=== PATIENT | female | born 1990 | race Caucasian/White ===

== ENCOUNTER 2018-02-05 10:14 | Inpatient (IN) ==
[2018-02-05] MEDS ORDERED: Metoclopramide 10 MG/2 ML VIAL IVP ONE (10:57)
[2018-02-05] MEDS ORDERED: Famotidine 20 MG/2 ML VIAL IVP ONE (10:57)
[2018-02-05] MEDS ORDERED: Gentamicin 490 MG in 0.9 % Sodium Chloride 100 ML IVPB ONE (11:02)
[2018-02-05 11:18] LABS: Basophils % 0.2 %; Eosinophils # 0.2 K/mcL (0.0-0.6); Eosinophils % 1.3 %; Hematocrit 41.4 % (35.3-44.9); Hemoglobin 13.7 g/dL (11.5-15.4); Immature Granulocytes % 0.4 % (0-4); Lymphocytes # 2.7 K/mcL (0.6-4.6); Lymphocytes % 22.4 %; Mean Corpuscular HGB Conc 33.1 g/dL (31.6-35.5); Mean Corpuscular Hemoglobin 27.6 pg (28.0-33.3); Mean Corpuscular Volume 83.3 fL (83.0-100.0); Mean Platelet Volume 11.5 fL (9.4-12.4); Monocytes # 0.6 K/mcL (0.0-1.3); Monocytes % 4.7 %; Neutrophils # 8.6 K/mcL (1.6-8.9); Platelet Count 288 K/mcL (140-400); Red Blood Count 4.97 M/mcL (3.82-4.97); Red Cell Distribution Width 14.1 % (11.5-14.5)
--- NOTE | 2018-02-05 11:22 | Anesthesia Evaluation PreOp ---
Date of Encounter: 02/05/18 Time of Encounter: 11:20 - Past History Planned Operation: Cardiac History: HTN (on Labetalol) Pulmonary History: Asthma Other Medical History: Diabetes Type II (Gestational), GERD Anesthesia History: No Prior Anesthetic Complications : Yes (37 weeks ) Alcohol Use: none Drug use: none Medications and Allergies Labetalol [Trandate] 200 mg PO DAILY 03/02/15 [History] Pnv95/Ferrous Fumarate/FA [ Formula Tablet] 1 each PO DAILY 03/02/15 [History] Loratadine [Claritin] 1 tab PO DAILY 03/15/17 [History] Azithromycin [Zithromax] 1 gm PO ONCE #1 packet 05/21/17 [Rx] Doxycycline 100 mg PO BID 14 Days #28 capsule 05/21/17 [Rx] Aspirin [Lo-Dose Aspirin EC] 1 tab PO DAILY 02/05/18 [History] Insulin NPH Human Isophane [Novolin N] 27 units SQ QPM 02/05/18 [History] metFORMIN 1,000 mg PO BID 02/05/18 [History] Allergy/AdvReac Type Severity Reaction Status Date / Time Amoxicillin AdvReac Hives Verified 02/05/18 10:48 cephalexin [From Keflex] AdvReac Gastrointestinal Verified 02/05/18 10:48 Upset doxycycline AdvReac Heartburn Verified 02/05/18 10:48 Penicillins AdvReac Hives Verified 02/05/18 10:48 - Meds/Allergy Pre-op Review Medications Reviewed: Yes Allergies Reviewed: Yes (Labetalol today midnight) Anesthesia Results - Labs Laboratory Tests 05/21/17 07/21/17 07/22/17 04:50 15:12 14:19 Hgb Hct Plt Count Sodium 136 Potassium 3.8 BUN 8 Creatinine 0.53 L 11/29/17 14:00 Hgb 11.8 Hct 35.7 Plt Count 384 Sodium Potassium BUN Creatinine - Imaging EKG: report reviewed (SR) Additional studies: ECHO 2018 EF 60%, no pulm htn Anesthesia Exam O2 Sat Height 1.8 m Weight 137 kg Height: 5'11 Weight: 137 kg NPO (# of Hours): MN Pain Scale: 0 - HEENT Pupil (Motor): Pupils equal, EOMI Mallampati: II Teeth: Normal Oral Opening: Greater than 3 - WINDOWS VMWARE ENGINEER LOC: Oriented WINDOWS VMWARE ENGINEER Motor: Normal RUE, Normal LUE, Normal RLE, Normal LLE, Normal Face WINDOWS VMWARE ENGINEER Sensory: Normal: RUE, LUE, RLE, LLE, Face - Cardiac Rhythm: Regular Murmur: None JVD: No Carotid Bruit: No - Pulmonary Breath Sounds: bilateral Clear Respiratory Effort: Symmetrical Anesthesia Assess/Plan ASA Score: 3 (HTN Asthma DM Obese) Level of consciousness: Cooperative Anesthetic Plan: Spinal Autologous Blood: No Monitoring Plan: Standard Monitors Recovery Plan: PACU (Discussed SAB, possible GA, possible blood transfusion, agrees to proceed)
[2018-02-05 11:29] LABS: Amphetamine Screen,Urine Negative ng/mL (Cutoff=1000); Barbiturate Screen,Urine Negative ng/mL (Cutoff=200); Benzodiazepines Screen,Urine Negative ng/mL (Cutoff=200); Cannabinoid Screen,Urine Negative ng/mL (Cutoff = 50); Cocaine Screen,Urine Negative ng/mL (Cutoff= 300); Opiate Screen,Urine Negative ng/mL (Cutoff=300); Phencyclidine Screen,Urine Negative ng/mL (Cutoff=25)
[2018-02-05] MEDS: Ringers Solution, Lactated 1,000 ML IVC ONE ×2 (11:46→12:51)
[2018-02-05] MEDS ORDERED: 0.9 % Sodium Chloride 1,000 ML ONE (12:02)
[2018-02-05] MEDS ORDERED: *HR* Morphine Sulfate/PF 10 MG/10 ML AMPUL ONE (12:07)
[2018-02-05] MEDS ORDERED: *HR* FentaNYL (PF) 100 MCG/2 ML VIAL ONE (12:07)
[2018-02-05] MEDS ORDERED: Lidocaine -MPF 1% 5 ML AMPUL ONE (12:09)
--- NOTE | 2018-02-05 12:23 | History & Physical Report ---
Date of Encounter: 02/05/18 Time of Encounter: 12:22 24 Hour HP Update - Instructions Instructions: If the History and Physical is less than 30 days old and was completed prior to A.M. admission and or procedure and has NOT been updated on calendar day of procedure please complete this update prior to performing procedure. - Update Patient reports changes in Medical Condition: No Changes in examination, assessment, or condition: No Changes in Medication: No Preop tests/diagnostics Reviewed: Yes Surgery Remains Indicated: Yes Consent for Planned Operative Procedure(s) Verified: Yes - Pre-Operative Checklist Preoperative Checklist Indicated: Yes Prophylactic Antibiotic Ordered: Yes Home Medications Include Beta Ten: Yes Beta Ten Taken Today (Day of Surgery): Yes Beta Ten Taken Yesterday (Day Prior to Surgery): Yes Is VTE Prophylaxis Indicated?: Yes
[2018-02-05] MEDS ORDERED: Clindamycin 900 MG/50 ML 900 MG/50 ML IV.SOLN IVPB ONE (12:26)
[2018-02-05] MEDS ORDERED: Ringers Solution, Lactated 1,000 ML ONE ×2 (12:40→14:33)
[2018-02-05] MEDS ORDERED: *HR* Oxytocin 10 UNIT/ML VIAL IM ONE ×2 (14:33)
[2018-02-05] MEDS ORDERED: Lidocaine -MPF 2% 5 ML VIAL ONE (14:33)
[2018-02-05] MEDS ORDERED: Ketamine *HR* 500 MG/10 ML MDV ONE (14:33)
--- NOTE | 2018-02-05 14:48 | Anesthesia Procedures ---
Date of Encounter: 02/05/18 Time of Encounter: 13:32 Procedures: Anesthesia - Epidural/Spinal Patient ID/Chart reviewed: Yes Patient examined: Yes OB Eval: Gestational age: 37 weeks 2 days OB Eval: : 4 OB Eval: Hx Para: 2 OB Eval: Contractions: Non-stressed pattern Consent Obtained: Yes Supplemental Oxygen: None/Room Air Site Prep: Aseptic Technique, Sterile prep and drape, Povidone-Iodine 1% Patient position: upright Local Anesthetic: Lidocaine 1% Amount of Local Anesthetic used: 10 Interspace Used: L3-L4 Loss of Resistance ([place]IST[place]): No Blood: No CSF: Yes Paresthesia: No Spinal Needle Gauge: 22 (120mm pencil point) Spinal Dose: see anesthesia record Procedure: successful on 3rd attempt; 3rd attempt performed by Dr. Ray; patient tolerated procedure well, vss Vitals + FHT's: see anesthesia record
[2018-02-05] MEDS ORDERED: Ondansetron 4 MG/2 ML VIAL IVP PRN ×2 (14:50→16:55)
[2018-02-05] MEDS ORDERED: *HR* Promethazine 25 MG/ML VIAL IVP PRN (14:50)
[2018-02-05] MEDS ORDERED: Acetaminophen IV 1,000 MG/100 ML INFUS..BTL IVPB ONE (14:50)
[2018-02-05] MEDS ORDERED: Naloxone 0.4 MG/ML INJ IVP PRN ×2 (14:50→16:55)
--- NOTE | 2018-02-05 16:00 | Anesthesia Evaluation Post Op ---
Date of Encounter: 02/05/18 Time of Encounter: 15:59 - Vital Signs Vital Signs: 127/65, HR 72, RR 16, SpO2 99% - Lungs Lungs: Clear Ascult./Percussion - Airway Airway: Non-obstructed - Cardiovascular Regular Rate - Mental Status Mental Status: Alert & Oriented, Answers Appropriately - Pain Pain Scale: 0 Pain Scale used: Numeric (1 - 10) - Nausea Vomiting Nausea Vomiting: Responds to treatment with IV Meds - Hydration Hydration: NPO, Kimball catheter - Discharge PostOp Status: Transfer Patient to floor
--- NOTE | 2018-02-05 16:18 | OB/GYN Procedure Note ---
Section - Date of procedure: 02/05/18 Preop diagnosis: other (placenta previa) Post-op diagnosis: same Procedure: primary low transverse Surgeon: Shannon Dominguez Blood Loss: 500 Was there an assistant printer floor covering present: Yes Brush Hand: Krishna Carrasco Anesthesiologist: Silviano Zayas Shellfish Sorter: Guido Castro Anesthesia Type: Spinal section complications: none Disposition: L&D Recovery Room Specimens: Placenta (hold) - (s) Infant A Infant Delivery Date: 02/05/18 Delivery Time: 13:51 Presentation: vertex Gender: Male Viability: Viable Pounds: 6 Ounces: 9 Gram Weight: 2.985 kg at 1 minute: 9 at 5 minutes: 9 Shoulder Dystocia: not encountered Specimens collected: cord blood Placenta: partial extraction Cord: nuchal cord, 3 umbilical vessels - Narrative Narrative: Patient was taken to the operative suite and placed under spinal anesthetic. She was then prepped and draped in normal sterile fashion in the dorsal supine position. Timeout was then performed. Antibiotics were given at room time. SCDs are on and active. Pfannenstiel skin incision is then made and carried through to underlying layer of fascia with the Bovie. The fascia was then incised in the midline and incision extended laterally with the Clemons scissors. The fascia was tented up and dissected off the rectus muscles sharply. The rectus muscles were in the midline and the peritoneum was tented up and entered sharply with the Metzenbaum scissors. The peritoneal incision was then extended bluntly. The bladder blade was then inserted and the vesicouterine peritoneum was entered sharply. Bladder flap was created digitally. A low transverse uterine incision was then made. The vertex was brought to the incision and the was delivered using fundal pressure. There was a loose nuchal cord. Cord was clamped and cut. was handed to waiting nursery staff. Placenta delivered spontaneously complete and intact with a three-vessel cord. The uterus was cleared of all clots and debris using moist laparotomy sponge. The uterine incision was then closed using 0 Vicryl in a running locked fashion. A second layer of the same suture was used to obtain excellent hemostasis. The abdomen was then cleared of all clots and debris using copious irrigation. The fascial incision was then closed using 0 PDS in a running fashion. The subcutaneous area was reapproximated with 3-0 monocryl. The skin was closed using 4-0 Vicryl in a subcuticular fashion. Sterile Parvin dressing was then placed. Mother and taken to recovery in stable condition.
[2018-02-05] MEDS ORDERED: *HR* HYDROmorphone (PF) 1 MG/ML SYRINGE IVP PRN (16:55)
[2018-02-05] MEDS ORDERED: Oxytocin 20 units/ LR 1000 mL 20 UNIT/1,000 ML BAG IVC SCH ×2 (16:55)
[2018-02-05] MEDS ORDERED: *HR* OxyCODONE Immed Rel 5 MG TABLET PO PRN (16:55)
[2018-02-05] MEDS ORDERED: Metoclopramide 10 MG/2 ML VIAL IVP PRN (16:55)
[2018-02-05] MEDS ORDERED: Acetaminophen 325 MG TABLET PO PRN (16:55)
[2018-02-05] MEDS ORDERED: Sennosides 8.6 MG TABLET PO PRN (16:55)
[2018-02-05] MEDS ORDERED: Simethicone 80 MG TAB.CHEW PO PRN (16:55)
[2018-02-05] MEDS: *HR* OxyCODONE/APAP 5/325 TABLET PO PRN (17:44)
[2018-02-05] MEDS: Ibuprofen 600 MG TABLET PO PRN (20:20)
[2018-02-06] MEDS: *HR* OxyCODONE/APAP 5/325 TABLET PO PRN ×5 (00:28→20:38)
[2018-02-06] MEDS: Ibuprofen 600 MG TABLET PO PRN ×2 (04:52→11:54)
[2018-02-06 06:59] LABS: Basophils % 0.3 %; Eosinophils # 0.2 K/mcL (0.0-0.6); Eosinophils % 1.9 %; Hematocrit 36.2 % (35.3-44.9); Immature Granulocytes % 0.3 % (0-4); Lymphocytes # 2.6 K/mcL (0.6-4.6); Lymphocytes % 22.9 %; Mean Corpuscular HGB Conc 32.9 g/dL (31.6-35.5); Mean Corpuscular Hemoglobin 27.9 pg (28.0-33.3); Mean Platelet Volume 11.2 fL (9.4-12.4); Monocytes # 0.5 K/mcL (0.0-1.3); Monocytes % 4.2 %; Neutrophils # 7.9 K/mcL (1.6-8.9); Platelet Count 242 K/mcL (140-400); Red Blood Count 4.26 M/mcL (3.82-4.97); Red Cell Distribution Width 14.1 % (11.5-14.5); Segmented Neutrophils % 70.4 %
[2018-02-06 07:04] LABS: Hemoglobin 11.9 g/dL (11.5-15.4)
[2018-02-06] MEDS ORDERED: Lanolin 7 G OINT...G. TP PRN (08:40)
[2018-02-06] MEDS: Prenatal Vit/FA 1 EACH TABLET PO SCH (09:05)
--- NOTE | 2018-02-06 11:48 | OB/GYN Progress Note ---
Date of Encounter: 02/06/18 Time of Encounter: 11:42 - Assessment and Plan (1) Status post delivery Current Visit: Yes Status: Acute Patient doing well day 1 postop. Meeting day 1 milestones. Voiding without difficulty, tolerating regular diet, pain well-controlled. Anticipate discharge tomorrow (2) Breast feeding status of mother Current Visit: Yes Status: Acute support as necessary. Patient has a breast pump at home. Subjective - Subjective Principal diagnosis: Status post delivery Interval history: Patient doing well day 1. Tolerating regular diet, voiding without difficulty, pain well-controlled. Bleeding light. Peak ressing intact and dry Patient reports: appetite normal, voiding normally, pain well controlled, ambulating normally [place]: doing well, nursing well Objective - Vital Signs Latest vital signs: Vital Signs Temp Pulse Resp BP Pulse Ox 02/06/18 07:45 97.8 F 85 16 104/70 02/06/18 04:00 97.6 F 86 16 112/72 96 02/06/18 00:00 97.7 F 92 16 109/76 95 02/05/18 20:00 97.9 F 83 16 142/91 94 02/05/18 19:02 98.1 F 90 16 145/100 02/05/18 18:00 98.6 F 75 16 135/97 02/05/18 17:30 97.6 F 64 16 142/91 98 02/05/18 17:00 97.6 F 69 14 134/83 97 Intake and Output 02/05/18 02/06/18 02/06/18 23:59 07:59 15:59 Intake Total 1080 / 1080 900 / 900 360 / 360 Output Total 1000 / 1000 1600 / 1600 1000 / 1000 Balance 80 / 80 -700 / -700 -640 / -640 Intake: Oral 1080 / 1080 900 / 900 360 / 360 Output: Urine 1000 / 1000 Catheter 1000 / 1000 1600 / 1600 Other: Meal Breakfast Percent of Meal Consumed 100% Stool Characteristics Normal for Patient Weight 137.2 kg 133.073 kg Blood Glucose* 106 Patient Weight 02/06/18 23:59 Weight 133.073 kg - Exam Lungs: bilateral: normal Chest: Normal S1, Normal S2 Extremities: Present: normal Abdomen: Present: normal appearance, soft Incision: Present: normal, dressed (KAY intact) Uterus: Present: normal, firm Fundal Height: 0 (u/1) - Labs Labs: Laboratory Results - last 24 hr 02/05/18 02/05/18 02/05/18 11:00 11:00 11:00 WBC RBC Hgb Hct MCV MCH MCHC RDW Plt Count MPV Immature Gran % Seg Neutrophils % Lymphocytes % Monocytes % Eosinophils % Basophils % Neutrophils # Lymphocytes # Monocytes # Eosinophils # Basophils # Glucose 97 POC Glucose Hep Bs Antigen Nonreactive Blood Type O POSITIVE Antibody Screen NEGATIVE Crossmatch See Detail 02/06/18 02/06/18 00:59 06:33 WBC 11.2 H RBC 4.26 Hgb 11.9 D Hct 36.2 MCV 85.0 MCH 27.9 L MCHC 32.9 RDW 14.1 Plt Count 242 MPV 11.2 Immature Gran % 0.3 Seg Neutrophils % 70.4 Lymphocytes % 22.9 Monocytes % 4.2 Eosinophils % 1.9 Basophils % 0.3 Neutrophils # 7.9 Lymphocytes # 2.6 Monocytes # 0.5 Eosinophils # 0.2 Basophils # 0.0 Glucose POC Glucose 106 H Hep Bs Antigen Blood Type Antibody Screen Crossmatch
[2018-02-07] MEDS: *HR* OxyCODONE/APAP 5/325 TABLET PO PRN ×2 (00:52→08:20)
[2018-02-07] MEDS: Ibuprofen 600 MG TABLET PO PRN (00:52)
[2018-02-07] MEDS: Prenatal Vit/FA 1 EACH TABLET PO SCH (08:20)
--- NOTE | 2018-02-07 08:50 | Discharge Summary ---
Date of Encounter: 02/07/18 Time of Encounter: 08:42 - Discharge Diagnosis (1) Status post delivery Priority: Primary Status: Acute Comments: Pt reports feeling well other than incisional pain this am. She desires disch arge home today. She is meeting all post-op milestones. (2) Chronic hypertension during Priority: Secondary Status: Acute Comments: BP's WNL on Labetalol 200mg BID. (3) Gestational diabetes Priority: Secondary Status: Acute Comments: Will obtain a 2 hour PP accucheck prior to discharge. Qualifiers: Gestational diabetes mellitus control: insulin-controlled Trimester: unspecified trimester Qualified Code(s): O24.414 - Gestational diabetes mellitus in , insulin controlled - Discharge Medications Prescriptions: Ibuprofen [Motrin] 600 mg PO Q6HR PRN #30 tablet PRN Reason: Cramping OxyCODONE Immed Rel [Roxicodone 5 MG] 5 mg PO Q6HR PRN 7 Days #28 tablet PRN Reason: Severe Pain (7-10) Docusate [Colace] 100 mg PO BID #60 capsule Labetalol [Trandate] 200 mg PO BID #120 tablet Home Medications: Pnv95/Ferrous Fumarate/FA [ Formula Tablet] 1 each PO DAILY 03/02/15 [History] Loratadine [Claritin] 1 tab PO DAILY 03/15/17 [History] Acetaminophen [Tylenol] 325 mg PO Q6HR PRN tablet 02/07/18 [Rx] Docusate [Colace] 100 mg PO BID #60 capsule 02/07/18 [Rx] Ibuprofen [Motrin] 600 mg PO Q6HR PRN #30 tablet 02/07/18 [Rx] Labetalol [Trandate] 200 mg PO BID #120 tablet 02/07/18 [Rx] Lanolin [Lansinoh] 1 appl TP TID PRN oint...g. 02/07/18 [Rx] OxyCODONE Immed Rel [Roxicodone 5 MG] 5 mg PO Q6HR PRN 7 Days #28 tablet 02/07/18 [Rx] Simethicone [Gas-X] 80 mg PO TID PRN tab.chew 02/07/18 [Rx] Allergies/Adverse Reactions: Allergy/AdvReac Type Severity Reaction Status Date / Time Amoxicillin AdvReac Hives Verified 02/05/18 10:48 cephalexin [From Keflex] AdvReac Gastrointestinal Verified 02/05/18 10:48 Upset doxycycline AdvReac Heartburn Verified 02/05/18 10:48 Penicillins AdvReac Hives Verified 02/05/18 10:48 Data Procedures and tests throughout hospitalization: Laboratory Tests 02/05/18 02/05/18 02/05/18 11:00 11:00 11:00 WBC 12.1 H RBC 4.97 Hgb 13.7 Hct 41.4 MCV 83.3 MCH 27.6 L MCHC 33.1 RDW 14.1 Plt Count 288 MPV 11.5 Immature Gran % 0.4 Seg Neutrophils % 71.0 Lymphocytes % 22.4 Monocytes % 4.7 Eosinophils % 1.3 Basophils % 0.2 Neutrophils # 8.6 Lymphocytes # 2.7 Monocytes # 0.6 Eosinophils # 0.2 Basophils # 0.0 Glucose POC Glucose Urine Opiates Screen Negative Ur Barbiturates Screen Negative Ur Phencyclidine Scrn Negative Ur Amphetamines Screen Negative U Benzodiazepines Scrn Negative Urine Cocaine Screen Negative U Marijuana (THC) Screen Negative Ur Drug Screen Interp See Below Hep Bs Antigen Blood Type O POSITIVE Antibody Screen NEGATIVE Crossmatch See Detail 02/05/18 02/05/18 02/06/18 11:00 11:00 00:59 WBC RBC Hgb Hct MCV MCH MCHC RDW Plt Count MPV Immature Gran % Seg Neutrophils % Lymphocytes % Monocytes % Eosinophils % Basophils % Neutrophils # Lymphocytes # Monocytes # Eosinophils # Basophils # Glucose 97 POC Glucose 106 H Urine Opiates Screen Ur Barbiturates Screen Ur Phencyclidine Scrn Ur Amphetamines Screen U Benzodiazepines Scrn Urine Cocaine Screen U Marijuana (THC) Screen Ur Drug Screen Interp Hep Bs Antigen Nonreactive Blood Type Antibody Screen Crossmatch 02/06/18 06:33 WBC 11.2 H RBC 4.26 Hgb 11.9 D Hct 36.2 MCV 85.0 MCH 27.9 L MCHC 32.9 RDW 14.1 Plt Count 242 MPV 11.2 Immature Gran % 0.3 Seg Neutrophils % 70.4 Lymphocytes % 22.9 Monocytes % 4.2 Eosinophils % 1.9 Basophils % 0.3 Neutrophils # 7.9 Lymphocytes # 2.6 Monocytes # 0.5 Eosinophils # 0.2 Basophils # 0.0 Glucose POC Glucose Urine Opiates Screen Ur Barbiturates Screen Ur Phencyclidine Scrn Ur Amphetamines Screen U Benzodiazepines Scrn Urine Cocaine Screen U Marijuana (THC) Screen Ur Drug Screen Interp Hep Bs Antigen Blood Type Antibody Screen Crossmatch Date of admission: 02/05/18 10:14 Primary care physician: Davina Tesfaye MD Discharging clinician: Nazia Ferguson Anticipated date of discharge: 02/07/18 - Patient Status Disposition: Home, Self-Care Condition: Good Functional capacity at discharge: independent ambulation Overall status at discharge: patient is progressing back to baseline - Discharge Instructions Follow Up With: Davina Tesfaye MD [Primary Care Provider] - Shannon Britton DO [Partnered Physician] - - Diet and Activity Activity: increase activity as tolerated Diet: regular diet Hospital Course Reason for admission: section (placenta previa) Delivery: section Episiotomy: none Laceration: none Other procedures: none Discharge diagnosis: IUP at term delivered baby: male Hospital course: - Date of procedure: 02/05/18 Preop diagnosis: other (placenta previa) Post-op diagnosis: same Procedure: primary low transverse Surgeon: Shannon Britton Quantitated Blood Loss: 500 Was there an glass ribbon machine operator assistant present: Yes Hydraulic Riveter: Krishna Carrasco Anesthesiologist: Silviano Zayas Assistant Program Manager: Guido Castro Anesthesia Type: Spinal section complications: none Disposition: L&D Recovery Room Specimens: Placenta (hold) - (s) Infant A Delivery Date: 02/05/18 Infant Delivery Time: 13:51 Presentation: vertex Gender: Male Viability: Viable Pounds: 6 Ounces: 9 Gram Weight: 2.985 kg at 1 minute: 9 at 5 minutes: 9 Shoulder Dystocia: not encountered Specimens collected: cord blood Placenta: partial extraction Cord: nuchal cord, 3 umbilical vessels Time Attestation: Total time spent providing and/or coordinating discharge services: Time Spent: Less than 30 minutes - VTE Documentation of Mechanical Device: Intermittent pneumatic compression device Exam - Constitutional Vitals: Temp Pulse Resp BP Pulse Ox 97.8 F 103 14 126/83 96 02/06/18 20:30 02/06/18 20:30 02/06/18 20:30 02/06/18 20:30 02/06/18 20:30 General appearance IM: A&O X 3 - Respiratory Respiratory exam: Present: CTAB - Cardiovascular Cardiovascular exam IM: Present: RRR, +S1, +S2 - GI/Abdominal GI/Abdominal exam IM: soft, no peritoneal signs Incision: dressed (KAY dry an intact) - Uterine Tone: Firm Uterus Position: 2 Fingers Below Umbilicus - Extremities Exam Extremities exam IM: Present: normal inspection (mild edema bilaterally, no erythema or warmth) - Neurological Exam Neurological exam: normal gait, oriented X3 - Psychiatric Additional comments: reports good mood
[2018-02-08 12:32] VITALS: BP 119/80
== END 2018-02-07 17:00 | disposition home or self-care (01) | DRG 787 ==
LOC: 1NENULAB 10:14 → 1NENUOBS 16:53
PROVIDERS: ADMIT Obstetrics & Gynecology; ATTEND Obstetrics & Gynecology